=== PATIENT | female | born 1980 | race Caucasian/White ===

== ENCOUNTER 2018-01-14 09:57 | Day surgery (SDC) | payer MEDICARE, OTHER ==
[2018-01-14] MEDS ORDERED: Lactated Ringer's 500 ML IV ONE (10:17)
[2018-01-14] MEDS ORDERED: Propofol 10 mg/ml Inj (20 ML) ONE (10:33)
[2018-01-14 11:39] VITALS: RESP 20; TEMP 96.9; O2SAT 96
[2018-01-14 11:50] VITALS: BP 100/62; PULSE 69
== END 2018-01-14 12:19 | disposition home or self-care (01) ==
LOC: H.ENDO 09:57
PROVIDERS: ATTEND Internal Medicine Gastroenterology
DX: K31.89 Other diseases of stomach and duodenum (principal); K29.50 Unspecified chronic gastritis without bleeding; K21.9 Gastro-esophageal reflux disease without esophagitis; R10.13 Epigastric pain
CPT/HCPCS: 43239; 88305; J2001; J2704; J7120

== ENCOUNTER 2018-01-28 09:23 | Day surgery (SDC) | payer MEDICARE, OTHER ==
[2018-01-28] MEDS ORDERED: Lactated Ringer's 500 ML IV ONE (09:44)
[2018-01-28] MEDS ORDERED: Propofol 10 mg/ml Inj (20 ML) ONE (11:08)
[2018-01-28 11:36] VITALS: TEMP 97; O2SAT 99
[2018-01-28 11:52] VITALS: BP 110/68; PULSE 70; RESP 16
== END 2018-01-28 11:37 | disposition home or self-care (01) ==
LOC: H.ENDO 09:23
PROVIDERS: ATTEND Internal Medicine Gastroenterology
DX: K59.00 Constipation, unspecified (principal); K62.5 Hemorrhage of anus and rectum; J45.909 Unspecified asthma, uncomplicated; E11.9 Type 2 diabetes mellitus without complications; F32.9 Major depressive disorder, single episode, unspecified; F41.9 Anxiety disorder, unspecified; G47.30 Sleep apnea, unspecified; K64.0 First degree hemorrhoids; R19.4 Change in bowel habit
CPT/HCPCS: 45378; J2001; J2704; J7120